=== PATIENT | female | born 1945 | race Caucasian/White ===

== ENCOUNTER → 2017-12-13 | Outpatient (CLI) | payer MEDICARE, BC | LOC: M.RAD 11:06 | DX: Z12.31 Encounter for screening mammogram for malignant neoplasm of breast (principal) ==

== ENCOUNTER → 2018-12-31 | Outpatient (CLI) | payer MEDICARE, BC | LOC: M.RAD 08:24 | DX: Z12.31 Encounter for screening mammogram for malignant neoplasm of breast (principal) ==

== ENCOUNTER → 2020-01-05 | Outpatient (CLI) | payer MEDICARE, BC | LOC: M.RAD 09:00 | PROVIDERS: ATTEND Family Medicine | DX: Z12.31 Encounter for screening mammogram for malignant neoplasm of breast (principal) ==

== ENCOUNTER → 2020-12-31 | Outpatient (CLI) | payer MEDICARE, BC | LOC: M.RAD 09:07 | PROVIDERS: ATTEND Family Medicine | DX: Z12.31 Encounter for screening mammogram for malignant neoplasm of breast (principal); Z98.890 Other specified postprocedural states ==